=== PATIENT | male | born 1950 | race Caucasian/White ===

== ENCOUNTER 2017-12-25 12:47 | Inpatient (IN) | payer MEDICARE ==
[~2017-12-25 12:47] MED LIST: ISOVUE-370 76%-LOCM 1 ML ONE
[2017-12-25 13:20] LABS: Hemoglobin 15.1 g/dL (14.0-18.0); Mean Corpuscular HGB CONC 35.3 g/dL (32.0-36.0); Mean Corpuscular Hemoglobin 31.7 pg (27.0-31.0); Mean Corpuscular Volume 89.8 fl (80.0-94.0); Mean Platelet Volume 5.6 fL (7.4-10.4); Platelet Count 348 thou/uL (130-400); RBC Distribution Width 11.4 % (11.5-14.5); Red Blood Cell (RBC) Count 4.76 mill/uL (4.70-6.10)
[2017-12-25 13:38] LABS: Bilirubin Small (Negative); Blood, Urine Small (Negative); Clarity CLEAR (Clear); Glucose, Urine (Dipstick) Negative (Negative); Leukocyte Trace (Negative); Nitrite Negative (Negative); Protein, Urine (Dipstick) 30 mg/dL (Neg-Trace); Specific Gravity, Urine 1.025 (1.002-1.036); Urobilinogen 0.2 mg/dL (0.2-1.0); pH, Urine 5.5 (5.0-9.0)
[2017-12-25 13:40] LABS: Band 9 % (5-11); Lymphocytes 8 % (21-51); MDiff Complete? YES; Monocytes 5 % (0-10); Neutrophil 77 % (42-75); PLT Morphology Comment Appears Adequate; RBC Morphology Normal; Reactive Lymphocytes 1 % (0-10)
[2017-12-25 13:41] LABS: Bacteria/HPF None Seen HPF (None Seen); Hyaline Casts/LPF 0-3 HYALINE CAST LPF (0-3 Hyaline); Pathc Cast-AUWi Flag 0.29 (0-2.49); RBC/HPF 0-3 HPF (0-3); Squamous Epithelial 0-3 HPF (0-3); WBC/HPF 0-3 HPF (0-3)
--- NOTE | 2017-12-25 13:44 | RAD ---
PORTABLE CHEST ONE VIEW: Date: 12-25-17 Time: 1:24 p.m. History: Fever, abdominal pain. FINDINGS: Comparison is made with exam of 04-10-07. The heart size is normal. No focal areas of consolidation, pneumothorax or pleural effusions are seen . There is evidence of old granulomatous disease. IMPRESSION: No acute process. POS: [facility]
[2017-12-25 13:47] LABS: ALT (SGPT) 19 U/L (8-55); AST (SGOT) 21 U/L (5-34); Albumin 4.1 g/dL (3.4-4.8); Alkaline Phosphatase 57 U/L (40-150); Anion Gap 14 mmol/L (10-20); BUN (Urea Nitrogen) 20 mg/dL (8.4-25.7); Bilirubin, Total 1.5 mg/dL (0.2-1.2); Calc. Creatinine Clearance 0 mL/min (70-130); Calcium 9.9 mg/dL (7.8-10.44); Carbon Dioxide 26 mmol/L (23-31); Chloride 95 mmol/L (98-107); Estimated GFR-MDRD 56; Glucose 124 mg/dL (80-115); Lipase 19 U/L (8-78); Potassium 4.3 mmol/L (3.5-5.1); Protein, Total 8.1 g/dL (5.8-8.1); Sodium 131 mmol/L (136-145)
[2017-12-25] MEDS ORDERED: Acetaminophen 500 MG TAB ONE (14:18)
[2017-12-25 14:29] LABS: CKMB 0.6 ng/mL (0-6.6); Troponin I Less than 0.010 ng/mL (< 0.028)
--- NOTE | 2017-12-25 15:22 | CT ---
CT ABDOMEN AND PELVIS WITH IV CONTRAST: Date: 12-25-17 History: Abdominal pain and fever. Patient complains of epigastric abdominal pain with onset of sympt oms two days ago. FINDINGS: There are gallbladder calculi seen and there is also pericholecystic inflammatory changes. In additio n there is what appears to be soft tissue mass within the gallbladder lumen measuring 2.6 cm in maxim al dimensions. The visualized portion of the duodenum/gastric antrum abuts this region. While a mass involving the stomach is a possibility, this appears to represent a gallbladder mass. The common duct is mildly prominent measuring approximately 9 mm. No intrahepatic biliary ductal dilatation is appre ciated. A nonobstructing 4 mm calculus is seen in the midportion left kidney. There is also a subcentimeter t oo small to characterize hypodense lesion in the superior pole left kidney. There is bibasilar atelectasis. Calcified granuloma is seen in the left lower lobe with calcified lef t hilar lymph node noted, related to prior granulomatous disease. The liver, spleen, pancreas, bilateral adrenal glands and right kidney demonstrate a normal CT appear ance. The prostate gland is enlarged measuring 5.5 cm in transverse dimensions. There is nodular prominence seen at the base of the urinary bladder which is thought to be related to nodular prominence of the prostate gland. Neoplastic process involving the prostate gland cannot be excluded based on CT evalua tion. The mass in the base of the urinary bladder is thought to be related to mass effect from the no dular enlarged prostate gland as opposed to a urinary bladder mass. There is colonic diverticulosis. A normal caliber retrocecal appendix is seen. Vascular calcifications are noted in the abdominal aorta and iliac arteries. Degenerative changes are present in the spine. IMPRESSION: 1. Mass like density within the medial wall of the gallbladder lumen with adjacent loop of small stefano l present as well. While a mass involving the GI tract is a possibility with extension into the gallb ladder, findings are worrisome for a gallbladder mass. There is evidence of cholelithiasis with adjac ent pericholecystic inflammatory changes. Right upper quadrant ultrasound is recommended for further evaluation. 2. Nonobstructing left renal calculus with subcentimeter too small to characterize hypodense lesion l eft kidney. 3. No CT evidence of appendicitis. 4. Enlargement of the prostate gland with a mass within the base of the urinary bladder with similar attenuation of the prostate gland, and this is likely related to mass effect on the posterior/inferio r aspect of the urinary bladder due to nodular prominence of the prostate gland. 5. Colonic diverticulosis. 6. Above findings discussed with Dr. Rodarte in the Emergency Department on 12-25-17 at 1509 hours. POS: [facility]
[2017-12-25] MEDS ORDERED: Meropenem 2 GM in Sodium Chloride 0.9% 100 ML IVPB SCH (15:45)
--- NOTE | 2017-12-25 16:25 | ULT ---
RIGHT UPPER QUADRANT ULTRASOUND: HISTORY: Pain and swelling. TECHNIQUE: Multiple longitudinal and transverse images of the right upper quadrant of the abdomen are obtained u sing a Multi-Hertz curvilinear transducer. Real-time and color-flow images are obtained. FINDINGS: There is a soft tissue mass seen within the expected location of the gallbladder. This may represent gallbladder malignancy. Please also see accompanying CT abdomen. Some echogenic foci are seen with in the gallbladder, possibly representing some gallstones. The common bile duct is moderately dilated, measuring up to 8 mm. No definite evidence of intrahepat ic biliary dilatation is seen. The right kidney is unremarkable. The visualized portion of the pancreas is unremarkable. IMPRESSION: Soft tissue density within the gallbladder, concerning for possible gallbladder malignancy. Findings discussed with Dr. Rodarte at 4:13 p.m. on 12/25/2017. CODE CR POS: [facility]
[2017-12-25 17:54] VITALS: BMI 26.4
[2017-12-25] MEDS ORDERED: Ondansetron HCl/PF 4 MG/2 ML Vial IVP PRN ×2 (18:47→22:18)
[2017-12-25] MEDS ORDERED: Ondansetron ODT 4 MG TAB SL PRN (18:47)
[2017-12-25] MEDS ORDERED: HYDROcodone/Acetaminophen 5/325 mg Tablet PO PRN ×2 (18:47)
[2017-12-25] MEDS ORDERED: Acetaminophen 325 MG TAB PO PRN (18:47)
[2017-12-25] MEDS: Sodium Chloride 0.9% 1,000 ML IV SCH ×2 (19:12→22:50)
[2017-12-25] MEDS ORDERED: Dextrose 50% Abboject 50 ML SYRINGE SLOW IVP PRN (22:18)
[2017-12-25] MEDS ORDERED: Dextrose 5% in Water 1,000 ML IV PRN (22:18)
[2017-12-26] MEDS: cefOXitin Sodium 1 GM in Sodium Chloride 0.9% 100 ML IVPB SCH ×3 (00:08→11:50)
[2017-12-26] MEDS: Sodium Chloride 0.9% 1,000 ML IV SCH ×2 (02:47→09:30)
[2017-12-26 04:45] LABS: ALT (SGPT) 14 U/L (8-55); AST (SGOT) 20 U/L (5-34); Albumin 3.1 g/dL (3.4-4.8); Alkaline Phosphatase 56 U/L (40-150); Anion Gap 9 mmol/L (10-20); BUN (Urea Nitrogen) 15 mg/dL (8.4-25.7); Bilirubin, Total 1.3 mg/dL (0.2-1.2); Calc. Creatinine Clearance 93 mL/min (70-130); Calcium 8.6 mg/dL (7.8-10.44); Carbon Dioxide 24 mmol/L (23-31); Chloride 103 mmol/L (98-107); Estimated GFR-MDRD 75; Globulin 3.1 g/dL (2.4-3.5); Glucose 125 mg/dL (80-115); Potassium 4.3 mmol/L (3.5-5.1); Protein, Total 6.2 g/dL (5.8-8.1); Sodium 132 mmol/L (136-145)
[2017-12-26 04:59] LABS: Band 22 % (5-11); Hemoglobin 13.2 g/dL (14.0-18.0); Lymphocytes 8 % (21-51); MDiff Complete? YES; Mean Corpuscular HGB CONC 34.8 g/dL (32.0-36.0); Mean Corpuscular Hemoglobin 31.8 pg (27.0-31.0); Mean Corpuscular Volume 91.4 fl (80.0-94.0); Mean Platelet Volume 5.7 fL (7.4-10.4); Monocytes 7 % (0-10); Neutrophil 63 % (42-75); PLT Morphology Comment Appears Adequate; Platelet Count 278 thou/uL (130-400); RBC Distribution Width 11.4 % (11.5-14.5); Red Blood Cell (RBC) Count 4.14 mill/uL (4.70-6.10); White Blood Cell (WBC) Count 19.8 thou/uL (4.8-10.8)
--- NOTE | 2017-12-26 07:30 | HP ---
CHIEF COMPLAINT: Abdominal pain. HISTORY OF PRESENT ILLNESS: The patient is a very pleasant 67-year-old white male. He gives an unus ual history of about 5-6 months of upper abdominal symptoms that he has been experiencing. He notes that it seemed to be primarily after he would drink alcohol and for this reason, he has stopped drink ing alcohol for the past several months. The pain he describes as being bilateral upper abdominal di scomfort and not just on the right. A couple of days ago he began having worsening pain and eventually developed a fever. Again, the sugey n he notes as being both in the left and right upper abdomen. Some nausea, but no vomiting. He has had a fever since he has been here up to 103. He was seen in the emergency room where he underwent e valuation with laboratory and radiologic studies. His white blood cell count was noted to be elevate d at 20,000 with a hemoglobin of 15.1. His chemistry profile revealed minor electrolyte abnormalitie s. His bilirubin is slightly elevated at 1.5. Other liver function tests were normal. CT scan show ed significant thickening and inflammation of the gallbladder and the adjacent stomach/small intestin e. There is a question of a soft tissue mass in the gallbladder. There is a lot of inflammation and thickening in the area and it is difficult to sort out the structures. PAST MEDICAL HISTORY: Benign prostatic hypertrophy. PAST SURGICAL HISTORY: Repair of a broken nose and surgery for a herniated disk. ALLERGIES: No known drug allergies. CURRENT MEDICATIONS: Flomax, finasteride, doxepin, [place] thyroid. PRIMARY CARE PHYSICIAN: He does have a true primary care physician, but he sees Dr. Eleno Dietz fo r most of his problems and his urologist is Dr. Whitlock. PERSONAL/SOCIAL HISTORY: He is with 3 children. He does not smoke and has not drank in 5-6 months. 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 REVIEW OF SYSTEMS: Otherwise, unremarkable. FAMILY HISTORY: Noncontributory. PHYSICAL EXAMINATION: VITAL SIGNS: He has been febrile to a temperature up to 103. He was tachycardic when he was febrile up to 136, blood pressure is 130/78. GENERAL: He is a well-developed, well-nourished, pleasant, articulate white male resting in bed in n o acute distress. He is alert and oriented x3. HEENT: Unremarkable. NECK: Supple. LUNGS: Clear to auscultation. CARDIAC: Regular rate and rhythm. ABDOMEN: There are normoactive bowel sounds present. He has tenderness. It is difficult to define in both to the left and right of midline in the upper abdomen. It is certainly not a typical gallbla dder distribution. EXTREMITIES: Unremarkable. ASSESSMENT: Patient who appears to have acute cholecystitis based on the ultrasound and CT scan. Th ere is thickening of the gallbladder wall and question of a mass within the gallbladder. It is diffi cult to discern the gallbladder from the adjacent bowel structures. It is also an atypical history t hat his symptoms were worse after he would drink alcohol. It seems that there is a possibility that this could be a perforated peptic ulcer or some sort of unusual malignancy. Nonetheless, for now, a laparoscopic cholecystectomy would be the most likely to yield appropriate results. The patient unde rstands that depending upon findings there is a reasonable chance that he can to convert to an open s urgery. His care will be assumed by one of my associates later today time as I will be going out of town, but anticipate surgery later today, probably by Dr. Hdz.
[2017-12-26] MEDS ORDERED: Famotidine/PF 20 mg/2ml Vial SLOW IVP SCH (09:00)
[2017-12-26 11:56] VITALS: BP 159/84; TEMP 100.7
[2017-12-26] MEDS ORDERED: Sodium Chloride 0.9% 1,000 ML IV SCH (13:30)
[2017-12-26] MEDS ORDERED: Meropenem 1 GM in Sodium Chloride 0.9% 100 ML IVPB SCH (14:00)
[2017-12-26] MEDS ORDERED: MEROPENEM 1 GM/50 ML 1 GM in Premix Bag 1 BAG IVPB SCH (14:00)
== END 2017-12-26 15:04 | disposition short-term general hospital (02) | DRG 446 ==
LOC: ERS 12:47 → SURG B 17:50
PROVIDERS: ADMIT Specialist; ATTEND Specialist
DX: K81.0 Acute cholecystitis (principal); N40.0 Benign prostatic hyperplasia without lower urinary tract symptoms; I10 Essential (primary) hypertension; E03.9 Hypothyroidism, unspecified; R93.3 Abnormal findings on diagnostic imaging of other parts of digestive tract; Z87.442 Personal history of urinary calculi; Z86.19 Personal history of other infectious and parasitic diseases; Z79.899 Other long term (current) drug therapy
CPT/HCPCS: 36415; 71045; 74177; 76705; 80053; 81003; 81015; 82553; 83605; 83690; 84484; 85025; 87040; 87086; 93005; 93010; 94760; 96361; 96365; J0694; J2185; J2270; J7050